=== PATIENT | male | born 1970 | race Caucasian/White ===

== ENCOUNTER 2023-02-15 20:05 | Emergency (ER) | payer MEDICARE, OTHER ==
[~2023-02-15] VITALS: Ht 183 cm; Wt 89.9 kg
[2023-02-15] MEDS ORDERED: DOXYCYCLINE 100 MG (VIBRAMYCIN) TABLET PO STA (20:17)
--- NOTE | 2023-02-15 20:20 | ED General ---
General Stated Complaint: FEVER|STIFFNESS| TICK Source of Information: Patient, Family () Exam Limitations: No Limitations History of Present Illness Date Seen by Provider: February 15, 2023 Time Seen by Provider: 20:10 Initial Comments 52-year-old male presents to the emergency department today for tick bite. Symptoms started 3 days ago when he noticed a tick on his right posterior back. He has had tickborne illness 3 times, [place] spotted fever twice and Lyme disease once. Initially the area was getting better although yesterday he started develop body aches, chills and sweats. He also had a headache with some neck stiffness. No known sick contacts. Does not know how long the tick was attached. All other systems reviewed and negative except documented per HPI. Voice recognition software was used to help create this chart Allergies and Home Medications Allergies Coded Allergies: No Known Drug Allergies (Unverified , 02/15/23) Patient Home Medication List Home Medication List Reviewed: Yes Doxycycline Hyclate (Doxycycline Hyclate) 100 Mg Tablet, 100 MG PO BID Prescribed by: RUBENS COWAN MD on 02/15/232021 Review of Systems Review of Systems Constitutional: see HPI Past Dlnwuwn-Uqmoaj-Wftnef Hx Patient Social History Tobacco Use?: Yes Use of E-Cig and/or Vaping dev: No Substance use?: No Alcohol Use?: No Physical Exam Vital Signs Vital Signs - First Documented 02/15/23 20:12 Temp 37.1 Pulse 90 Resp 18 B/P (MAP) 138/107 (117) Pulse Ox 99 O2 Delivery Room Air Capillary Refill : Height, Weight, BMI Height: '" Weight: lbs. oz. kg; BMI Method: General Appearance: No Apparent Distress, WD/WN HEENT: Normal ENT Inspection, Pharynx Normal Neck: Full Range of Motion, Normal Inspection, Non Tender, Supple Respiratory: Chest Non Tender, Lungs Clear, Normal Breath Sounds, No Accessory Muscle Use, No Respiratory Distress Cardiovascular: Regular Rate, Rhythm, No Murmur, Normal Peripheral Pulses Gastrointestinal: Normal Bowel Sounds, No Organomegaly, Non Tender, Soft Extremity: Normal Capillary Refill, Normal Inspection, Normal Range of Motion, Non Tender, No Calf Tenderness Neurologic/Psychiatric: Alert, Oriented x3, No Motor/Sensory Deficits Skin: Warm/Dry, Other (Small area of erythema in the right lower belt line in his low back. No induration, swelling.) Lymphatic: No Adenopathy Progress/Results/Core Measures Suspected Sepsis SIRS Temperature: Pulse: Respiratory Rate: Blood Pressure / Mean: Results/Orders Lab Results Laboratory Tests Test 02/15/23 20:39 Range/Units My Orders Orders - RUBENS COWAN DO Doxycycline Hyclate Tablet (Vibramycin T (02/15/23 20:17) Tick Panel With Lyme Eia (02/15/23 20:20) Vital Signs/I&O 02/15/23 02/15/23 02/15/23 20:12 20:12 20:41 Temp 37.1 Pulse 90 84 Resp 18 18 B/P (MAP) 138/107 (117) 131/89 Pulse Ox 99 99 O2 Delivery Room Air Room Air Room Air Capillary Refill : Departure Communication (Admissions) Pt hemodynamically stable, nontoxic. Symptoms consistent with previous tick borne illness. Will go ahead and draw tick panel and treat with doxycycline. Will call with tick panel results. Impression Primary Impression: Tick bite Qualified Codes: S30.860A - Insect bite (nonvenomous) of lower back and pelvis, initial encounter; W57.XXXA - Bitten or stung by nonvenomous insect and other nonvenomous arthropods, initial encounter Disposition: 01 HOME, SELF-CARE Condition: Stable Departure-Patient Inst. Referrals: NO,LOCAL PHYSICIAN (PCP/Family) Primary Care Physician Patient Instructions: Insect bites and stings Add. Discharge Instructions: Tick panel was drawn today, you will be notified with the results. Take the antibiotics as prescribed until they are gone. Increase your fluids and rest. Alternate ibuprofen and Tylenol for pain. Return to the emergency department for any severe concerns. Scripts Doxycycline Hyclate (Doxycycline Hyclate) 100 Mg Tablet 100 MG PO BID for 14 Days, #28 TAB Prov: RUBENS COWAN DO 02/15/23 RUBENS COWAN DO February 15, 2023 20:20
[2023-02-15] MEDS ORDERED: DOXY100T2 PO (20:22)
[2023-02-15 20:41] VITALS: BP 131/89
== END 2023-02-15 20:41 | disposition home or self-care (01) ==
LOC: ER FS 20:10
DX: S30.860A Insect bite (nonvenomous) of lower back and pelvis, initial encounter (principal); Z28.310 Unvaccinated for COVID-19; W57.XXXA Bitten or stung by nonvenomous insect and other nonvenomous arthropods, initial encounter
CPT/HCPCS: 36415; 86618; 86666; 86668; 86757

== ENCOUNTER 2023-02-18 16:35 | Emergency (ER) | payer OTHER ==
[~2023-02-18] VITALS: Ht 180.3 cm; Wt 90.0 kg
[~2023-02-18 16:35] MED LIST: DOXY100T2 PO
--- NOTE | 2023-02-18 16:50 | ED General ---
General Chief Complaint: General Problems/Pain Stated Complaint: WEAKNESS,PAIN ALL OVER,SWEATY History of Present Illness Date Seen by Provider: February 18, 2023 Time Seen by Provider: 16:50 Initial Comments 52-year-old male presents with weakness, pain all over, sweaty and generalized malaise. Patient was seen here couple days ago and diagnosed with a tickborne illness and started on doxycycline twice daily. Patient was tested for tickborne illnesses and the test came back positive for tularemia. Patient does report they have rabbits at home but none that they do have been acting sick. Allergies and Home Medications Allergies Coded Allergies: ibuprofen (Verified Allergy, Unknown, 02/18/23) tramadol (Verified Allergy, Unknown, 02/18/23) Patient Home Medication List Home Medication List Reviewed: Yes Doxycycline Hyclate (Doxycycline Hyclate) 100 Mg Tablet, 100 MG PO BID Prescribed by: RUBENS COWAN MD on 02/15/232021 Ondansetron (Ondansetron Odt) 4 Mg Tab.rapdis, 4 MG PO Q6H PRN for [place] SE[place]/VOMITING Prescribed by: KALLI ZHANG on 02/18/231723 Review of Systems Review of Systems Constitutional: chills, diaphoresis, fever, malaise Respiratory: no symptoms reported Cardiovascular: no symptoms reported Gastrointestinal: nausea; No vomiting Genitourinary: no symptoms reported Musculoskeletal: see HPI Psychiatric/Neurological: Headache Physical Exam Vital Signs Vital Signs - First Documented 02/18/23 17:09 Temp 36.6 Pulse 62 Resp 16 B/P (MAP) 137/58 (84) Pulse Ox 99 O2 Delivery Room Air Capillary Refill : Height, Weight, BMI Height: '" Weight: lbs. oz. kg; 26.00 BMI Method: General Appearance: No Apparent Distress, WD/WN Neck: Normal Inspection, Supple Respiratory: Lungs Clear, Normal Breath Sounds Cardiovascular: Regular Rate, Rhythm, No Edema Gastrointestinal: Non Tender, Soft Extremity: Normal Capillary Refill Neurologic/Psychiatric: Alert, Oriented x3, No Motor/Sensory Deficits, Normal Mood/Affect, medical data analyst II-XII Norm as Tested Skin: Normal Color, Warm/Dry Progress/Results/Core Measures Suspected Sepsis SIRS Temperature: Pulse: Respiratory Rate: Laboratory Tests 02/18/23 17:00: White Blood Count 3.8L Blood Pressure / Mean: Laboratory Tests 02/18/23 17:00: Creatinine 0.85, Platelet Count 160, Total Bilirubin 0.3 Results/Orders Lab Results Laboratory Tests Test 02/18/23 17:00 Range/Units White Blood Count 3.8 L 4.3-11.0 10^3/uL Red Blood Count 4.69 4.30-5.52 10^6/uL Hemoglobin 13.7 13.3-17.7 g/dL Hematocrit 40 40-54 % Mean Corpuscular Volume 85 80-99 fL Mean Corpuscular Hemoglobin 29 25-34 pg Mean Corpuscular Hemoglobin Concent 34 32-36 g/dL Red Cell Distribution Width 12.7 10.0-14.5 % Platelet Count 160 130-400 10^3/uL Mean Platelet Volume 9.0 9.0-12.2 fL Immature Granulocyte % (Auto) 1 % Neutrophils (%) (Auto) 53 42-75 % Lymphocytes (%) (Auto) 31 12-44 % Monocytes (%) (Auto) 11 0-12 % Eosinophils (%) (Auto) 3 0-10 % Basophils (%) (Auto) 1 0-10 % Neutrophils # (Auto) 2.0 1.8-7.8 10^3/uL Lymphocytes # (Auto) 1.2 1.0-4.0 10^3/uL Monocytes # (Auto) 0.4 0.0-1.0 10^3/uL Eosinophils # (Auto) 0.1 0.0-0.3 10^3/uL Basophils # (Auto) 0.0 0.0-0.1 10^3/uL Immature Granulocyte # (Auto) 0.0 0.0-0.1 10^3/uL Sodium Level 142 135-145 MMOL/L Potassium Level 3.8 3.6-5.0 MMOL/L Chloride Level 106 98-107 MMOL/L Carbon Dioxide Level 25 21-32 MMOL/L Anion Gap 11 5-14 MMOL/L Blood Urea Nitrogen 15 7-18 MG/DL Creatinine 0.85 0.60-1.30 MG/DL Estimat Glomerular Filtration Rate 105 BUN/Creatinine Ratio 18 Glucose Level 177 H 70-105 MG/DL Calcium Level 9.3 8.5-10.1 MG/DL Corrected Calcium 9.1 8.5-10.1 MG/DL Total Bilirubin 0.3 0.1-1.0 MG/DL Aspartate Amino Transf (AST/SGOT) 24 5-34 U/L Alanine Aminotransferase (ALT/SGPT) 31 0-55 U/L Alkaline Phosphatase 57 40-136 U/L Total Protein 6.9 6.4-8.2 GM/DL Albumin 4.3 3.2-4.5 GM/DL My Orders Orders - ZHANGKALLI L DO Cbc With Automated Diff (02/18/23 16:54) Comprehensive Metabolic Panel (02/18/23 16:54) Ondansetron Injection (Zofran Injectio (02/18/23 17:00) Ns Iv 1000 Ml (Sodium Chloride 0.9%) (02/18/23 16:54) Chest Pa/Lat (2 View) (02/18/23 16:56) Medications Given in ED Current Medications Medications Dose Ordered Sig/Meghana Route Start Time Stop Time Status Last Admin Dose Admin Ondansetron HCl 4 mg ONCE ONCE IVP 02/18/23 17:00 02/18/23 17:01 DC 02/18/23 17:06 4 MG Vital Signs/I&O 02/18/23 17:09 Temp 36.6 Pulse 62 Resp 16 B/P (MAP) 137/58 (84) Pulse Ox 99 O2 Delivery Room Air Capillary Refill : Diagnostic Imaging Diagonstic Imaging: Xray Plain Films/CT/US/NM/MRI: chest Comments Date of Exam:02/18/23 CHEST PA/LAT (2 VIEW) EXAMINATION: Chest, two views. HISTORY: Fever. COMPARISON: None available. FINDINGS: The lungs are clear without edema or pneumonia. No pleural effusion or pneumothorax. Heart size is normal. There is a calcified granuloma in the left upper lobe. IMPRESSION: 1. Clear lungs. Departure Impression Primary Impression: [place] Disposition: HOME, SELF-CARE Condition: Stable Departure-Patient Inst. Referrals: NO,LOCAL PHYSICIAN (PCP/Family) Primary Care Physician Patient Instructions: [place] (DC) Add. Discharge Instructions: Please continue your doxycycline for the complete 14-day course. Please follow- up with your primary care provider once finished and recheck your symptoms. Return to the ER with any worsening of symptoms or concerns. All discharge instructions reviewed with patient and/or family. Voiced understanding. Scripts Ondansetron (Ondansetron Odt) 4 Mg Tab.rapdis 4 MG PO Q6H PRN for NAUSEA/VOMITING, #20 TAB 0 Refills Prov: KALLI ZHANG DO 02/18/23 KALLI ZHANG DO February 18, 2023 16:50
[2023-02-18] MEDS ORDERED: NS IV 1000 ML 1,000 ML IV STA (16:54)
[2023-02-18] MEDS ORDERED: ONDANSETRON 4 MG/2 ML (SDV) Z0FRAN IVP ONE (17:00)
[2023-02-18 17:09] VITALS: BP 137/58
[2023-02-18 17:12] LABS: BASOPHILS % (AUTO) 1 % (0-10); EOSINOPHILS # (AUTO) 0.1 10^3/uL (0.0-0.3); EOSINOPHILS % (AUTO) 3 % (0-10); HEMATOCRIT 40 % (40-54); HEMOGLOBIN 13.7 g/dL (13.3-17.7); LYMPHOCYTES # (AUTO) 1.2 10^3/uL (1.0-4.0); LYMPHOCYTES % (AUTO) 31 % (12-44); MEAN CORPUSCULAR HEMOGLOBIN 29 pg (25-34); MEAN CORPUSCULAR HGB CONC 34 g/dL (32-36); MEAN CORPUSCULAR VOLUME 85 fL (80-99); MONOCYTES # (AUTO) 0.4 10^3/uL (0.0-1.0); MONOCYTES % (AUTO) 11 % (0-12); NEUTROPHILS % (AUTO) 53 % (42-75); PLATELET COUNT 160 10^3/uL (130-400); WHITE BLOOD COUNT 3.8 10^3/uL (4.3-11.0)
[2023-02-18] MEDS ORDERED: ONDA4TAB11 PO (17:24)
--- NOTE | 2023-02-18 17:28 | Diagnostic Imaging Report ---
EXAMINATION: Chest, two views. HISTORY: Fever. COMPARISON: None available. FINDINGS: The lungs are clear without edema or pneumonia. No pleural effusion or pneumothorax. Heart size is normal. There is a calcified granuloma in the left upper lobe. IMPRESSION: 1. Clear lungs. Dictated by: Dictated on workstation # [id number]
[2023-02-18 17:35] LABS: BILIRUBIN,TOTAL 0.3 MG/DL (0.1-1.0); CALCIUM 9.3 MG/DL (8.5-10.1); CREATININE SERUM 0.85 MG/DL (0.60-1.30); POTASSIUM 3.8 MMOL/L (3.6-5.0)
[2023-02-18 17:36] LABS: ALBUMIN 4.3 GM/DL (3.2-4.5); TOTAL PROTEIN 6.9 GM/DL (6.4-8.2)
== END 2023-02-18 17:47 | disposition home or self-care (01) ==
LOC: EDUNIT# 16:35 → ER FS 16:37
DX: A21.9 Tularemia, unspecified (principal); R11.0 Nausea
CPT/HCPCS: 36415; 71046; 80053; 85025

== ENCOUNTER 2023-05-28 12:17 | Emergency (ER) | payer MEDICARE, MEDICAID ==
[~2023-05-28] VITALS: Ht 182.9 cm; Wt 90.7 kg
[~2023-05-28 12:17] MED LIST changes: +DOXY100C5 PO; +ONDA4TAB11 PO; +PRD20T PO
--- NOTE | 2023-05-28 12:22 | ED EENT ---
History of Present Illness General Stated Complaint: LT EYE PAIN History of Present Illness Date Seen by Provider: May 28, 2023 Time Seen by Provider: 12:22 Initial Comments 53-year-old male is here with complaints of left eye pain after he had a foreign body go into his eye while he was working on a car. This irritation has been worsening. Allergies and Home Medications Allergies Coded Allergies: ibuprofen (Verified Allergy, Unknown, 02/18/23) tramadol (Verified Allergy, Unknown, 02/18/23) Patient Home Medication List Home Medication List Reviewed: Yes Doxycycline Hyclate (Doxycycline Hyclate) 100 Mg Tablet, 100 MG PO BID Prescribed by: RUBENS COWAN MD on 02/15/232021 Doxycycline Hyclate (Doxycycline Hyclate) 100 Mg Capsule, 100 MG PO BID Prescribed by: SANDOR HRADIN on 04/12/23 1024 Ondansetron (Ondansetron Odt) 4 Mg Tab.rapdis, 4 MG PO Q6H PRN for NAUSEA/VOMITING Prescribed by: KALLI ZHANG on 02/18/23 172 Prednisone (Prednisone) 20 Mg Tab, 40 MG PO DAILY Prescribed by: SANDOR HARDIN on 04/12/23 1024 Review of Systems Review of Systems Constitutional: no symptoms reported Eyes: Pain, Photophobia Ears: No Symptoms Reported Nose: no symptoms reported Mouth: no symptoms reported Throat: no symptoms reported Past Txwhlan-Ejuphj-Qwysha Hx Immunizations Up To Date First/Initial COVID19 Vaccinat: Denies Past Medical History Surgery/Hospitalization HX: DM, neuropathy, Lyme disease, [place] spotted fever x2, tularemia January 2023 Visual Acuity : Vision Acuity Degree: Very difficult to open left eye to do vision test. But patient does not moreno Physical Exam Vital Signs Vital Signs - First Documented 05/28/23 12:38 Temp 36.8 Pulse 76 Resp 17 B/P (MAP) 137/76 (96) O2 Delivery Room Air Height, Weight, BMI Height: '" Weight: lbs. oz. kg; 27.00 BMI Method: General Appearance: WD/WN, mild distress Eyes: left eye PERRL, left eye EOMI, left eye conjunctival hemorrhage, left eye foreign body (Foreign body seen under Macias lamp and fluorescein strip being as a tiny speck at the 9 o'clock position of the cornea. Inferior conjunctival abrasion seen as well.) Nose: normal inspection Mouth/Throat: normal mouth inspection Neck: non-tender, full range of motion, supple, normal inspection Neurologic/Psychiatric: alert, normal mood/affect, oriented x 3 Skin: normal color Progress/Results/Core Measures Results/Orders My Orders Orders - HAYLEE VALENCIA MD Tetracaine 0.5% Ophth Jennifer Sdv (Tetracai (05/28/23 12:45) Fluorescein Ophthalmic Strips (Fluoresce (05/28/23 12:45) Medications Given in ED Current Medications Medications Dose Ordered Sig/Meghana Route Start Time Stop Time Status Last Admin Dose Admin Fluorescein Sodium ONCE ONCE OP 05/28/23 12:45 05/28/23 12:46 DC 05/28/23 12:53 1 MG Tetracaine HCl 1 OR 2 DROPS INTO AFFEC... ONCE ONCE OP 05/28/23 12:45 05/28/23 12:46 DC 05/28/23 12:53 1 ML Vital Signs/I&O 05/28/23 12:38 Temp 36.8 Pulse 76 Resp 17 B/P (MAP) 137/76 (96) O2 Delivery Room Air Progress Progress Note : Progress Note 1. LEFT EYE EMBEDDED FOREIGN BODY IN CORNEA & LEFT CONJUNCTIVAL ABRASION: - Tetracaine drops to eft eye , with fluorescin strip test under Wood's lamp showed the above - Erythromycin ophthalmic ointment prescription and advised to use eye patch - Follow up with Ophthalmology [facility] to assess embedded foreign body in eye. - Advised Ibuprofen for pain Departure Impression Primary Impression: Foreign body of cornea Qualified Codes: T15.02XA - Foreign body in cornea, left eye, initial encounter Additional Impression: Abrasion of conjunctiva, left Qualified Codes: S05.02XA - Injury of conjunctiva and corneal abrasion without foreign body, left eye, initial encounter Disposition: 01 HOME, SELF-CARE Condition: Stable Departure-Patient Inst. Referrals: JANET MARY APRN (PCP) Primary Care Physician [facility] (Family) Primary Care Physician Patient Instructions: How to Use Eye Drops and Eye Ointment ED, Foreign Body in Eye, Corneal Abrasion (DC) Add. Discharge Instructions: - Erythromycin ophthalmic ointment prescription and advised to use eye patch - Follow up with Ophthalmology [facility] to assess embedded foreign body in eye. - Advised Ibuprofen for pain Scripts Erythromycin Base (Erythromycin Opthalmic Ointment) 5 Mg/Gram (0.5 %) Oint...g. 1 APPLIC OP Q4H for 10 Days, #1 EA 1/2 inch Prov: HAYLEE VALENCIA MD 05/28/23 HAYLEE VALENCIA MD May 28, 2023 12:22
[2023-05-28] MEDS ORDERED: FLUORESCEIN 1 MG OPHTHALMIC STRIPS OP ONE (12:45)
[2023-05-28] MEDS ORDERED: TETRACAINE 0.5% OPHTH SOLN 4 ML BTL (SINGLE DOSE ONLY) OP ONE (12:45)
[2023-05-28] MEDS ORDERED: ERYT1OIN6 OP (13:22)
[2023-05-28 13:34] VITALS: BP 141/79
== END 2023-05-28 13:34 | disposition home or self-care (01) ==
LOC: EDUNIT# 12:17 → ER FS 12:19
DX: T15.02XA Foreign body in cornea, left eye, initial encounter (principal); Z28.310 Unvaccinated for COVID-19; Y92.810 Car as the place of occurrence of the external cause
CPT/HCPCS: 99281

== ENCOUNTER → 2023-07-30 | Outpatient (CLI) | payer MEDICARE, MEDICAID ==
[~2023-07-30] MED LIST changes: +ERYT1OIN6 OP
== END ==
LOC: CARD 10:05
PROVIDERS: ATTEND Physician Assistant
DX: R07.9 Chest pain, unspecified (principal); E78.2 Mixed hyperlipidemia; E11.9 Type 2 diabetes mellitus without complications; Z82.49 Family history of ischemic heart disease and other diseases of the circulatory system
CPT/HCPCS: 93306